=== PATIENT | female | born 1995 | race Caucasian/White ===

== ENCOUNTER 2020-05-21 10:34 | Inpatient (IN) | payer MEDICAID ==
[~2020-05-21] VITALS: Ht 162.6 cm; Wt 70.0 kg
[2020-05-21] MEDS ORDERED: MISOPROSTOL 200 MCG TABLET ONE ×2 (10:57→12:10)
[2020-05-21] MEDS ORDERED: OXYTOCIN 30U/ 0.9% NaCL 500ML 500 ML ONE ×2 (10:57→12:54)
[2020-05-21] MEDS ORDERED: LIDOCAINE 1%, 20ML ONE (10:57)
[2020-05-21] MEDS ORDERED: NEWBORN KIT ONE (10:57)
[2020-05-21] MEDS ORDERED: FENTANYL PF 100 MCG/2ML ONE (11:07)
[2020-05-21] MEDS ORDERED: D5%-LACTATED RINGERS 1,000 ML IV SCH (11:17)
[2020-05-21] MEDS ORDERED: OXYTOCIN 30U/ 0.9% NaCL 500ML 500 ML IV ONE (11:17)
[2020-05-21] MEDS: LACTATED RINGERS 1,000 ML IV SCH ×2 (11:22→11:55)
[2020-05-21 11:28] LABS: BASOPHILS # (AUTO) 0.01 x10^3/uL (0-0.1); BASOPHILS % (AUTO) 0 % (0-1); EOSINOPHILS # (AUTO) 0.01 x10^3/uL (0-0.4); EOSINOPHILS % (AUTO) 0 % (1-7); LYMPHOCYTES # (AUTO) 1.48 x10^3/uL (1-3.4); LYMPHOCYTES % (AUTO) 13 % (22-44); MD NO; MEAN CORPUSCULAR HEMOGLOBIN 32.6 pg (27.0-34.8); MEAN PLATELET VOLUME 11.4 fL (7.4-10.4); MONOCYTES # (AUTO) 0.57 x10^3/uL (0.2-0.8); MONOCYTES % (AUTO) 5 % (2-9); NEUTROPHILS % (AUTO) 82 % (42-75); PLATELET COUNT 106 x10^3/uL (130-400); RED BLOOD COUNT 3.53 x10^6/uL (3.82-5.3); RED CELL DISTRIBUTION WIDTH 12.7 % (9.6-15.2)
[2020-05-21] MEDS ORDERED: TERBUTALINE 1 MG/ML, 1ML IVPush PRN (11:30)
[2020-05-21] MEDS ORDERED: FENTANYL PF 100 MCG/2ML IV PRN (11:30)
[2020-05-21] MEDS ORDERED: FENTANYL PF 100 MCG/2ML IVPush PRN (11:30)
[2020-05-21] MEDS ORDERED: TERBUTALINE 1 MG/ML, 1ML SQ PRN (11:30)
[2020-05-21] MEDS ORDERED: ONDANSETRON 2MG/ML, 2ML IVPush PRN (11:30)
[2020-05-21] MEDS ORDERED: ONDANSETRON 2MG/ML, 2ML IV PRN (12:00)
[2020-05-21] MEDS ORDERED: METHYLERGONOVINE 0.2 MG/ML IM PRN (12:00)
[2020-05-21] MEDS ORDERED: DOCUSATE 100 MG CAPSULE PO PRN (12:00)
[2020-05-21] MEDS ORDERED: CARBOPROST TROMETHAMINE 250 MCG/ML, 1ML IM PRN (12:00)
[2020-05-21] MEDS ORDERED: HYDROcodone/APAP 5/325 TABLET PO PRN ×2 (12:00)
[2020-05-21] MEDS ORDERED: ACETAMINOPHEN 325 MG TABLET PO PRN (12:00)
[2020-05-21] MEDS ORDERED: MISOPROSTOL 200 MCG TABLET PR PRN (12:00)
[2020-05-21] MEDS ORDERED: SIMETHICONE 80 MG CHEW TAB PO PRN (12:00)
[2020-05-21] MEDS ORDERED: OXYTOCIN 10 UNITS/ML, 1ML IM PRN (12:00)
[2020-05-21] MEDS: OXYTOCIN 30U/ 0.9% NaCL 500ML 500 ML IV SCH ×2 (12:56→21:47)
[2020-05-21 14:10] VITALS: BP 131/62
[2020-05-21] MEDS: IBUPROFEN 600 MG TABLET PO PRN ×2 (14:56→20:28)
[2020-05-21 18:15] VITALS: BP 101/58
[2020-05-21 20:00] VITALS: BP 117/73
[2020-05-22 00:01] VITALS: BP 111/75
[2020-05-22 04:39] VITALS: BP 121/79
[2020-05-22] MEDS ORDERED: LEVOTHYROXINE 112 MCG TABLET PO SCH (06:00)
[2020-05-22 08:00] VITALS: BP 133/86
[2020-05-22] MEDS: IBUPROFEN 600 MG TABLET PO PRN (08:36)
[2020-05-22] MEDS ORDERED: PRENATAL VIT/IRON/FA 1 EACH TABLET PO SCH (09:00)
[2020-05-22] MEDS ORDERED: IBUP-1222 PO (11:58)
[2020-05-22] MEDS ORDERED: SENN-92 PO (11:59)
[2020-05-22] MEDS ORDERED: HYDR-3240 PO (11:59)
== END 2020-05-22 14:12 | disposition home or self-care (01) | DRG 560 ==
LOC: LDOP 10:34 → LDIP 10:53 → 2NW 14:00
PROVIDERS: ADMIT Obstetrics & Gynecology; ATTEND Obstetrics & Gynecology
PROC: 10E0XZZ Delivery of Products of Conception, External Approach (ICD-10-PCS; principal; 2020-05-21)
PROC: 10907ZC Drainage of Amniotic Fluid, Therapeutic from Products of Conception, Via Natural or Artificial Opening (ICD-10-PCS; 2020-05-21)
DX: O99.284 Endocrine, nutritional and metabolic diseases complicating childbirth (principal); O99.52 Diseases of the respiratory system complicating childbirth; J45.909 Unspecified asthma, uncomplicated; O99.12 Other diseases of the blood and blood-forming organs and certain disorders involving the immune mechanism complicating childbirth; D69.6 Thrombocytopenia, unspecified; E03.9 Hypothyroidism, unspecified; O71.82 Other specified trauma to perineum and vulva; Z37.0 Single live birth; Z3A.38 38 weeks gestation of pregnancy
CPT/HCPCS: 36415; 85025; 86592; 86850; 86900; G0378; J3010; J2590; J7120